=== PATIENT | female | born 1965 | race Two or more races ===

== ENCOUNTER 2019-12-21 07:57 | Emergency (ER) | payer BC ==
[~2019-12-21] VITALS: Ht 160 cm; Wt 61.2 kg
[2019-12-21 08:00] VITALS: BP 118/72
--- NOTE | 2019-12-21 08:09 | NUR ---
PT BIBA C/O LEFT SHOULDER PAIN S/P FALL ON STAIRS ONE HOUR AGO. NO ROM ON THE LEFT SHOULDER. PT STATES THE PAIN IS 10/10 AT THIS TIME. 50 MCG FENTANYL GIVEN ON SCENE. PT IS A&OX4. RADIAL PULSE +. CAP REFILLS ON LEFT FINGERS <2S. HR EVEN AND REGULAR; PT DENIES ANY FEVER, CP, SOB, OR COUGH AT THIS TIME; PATIENT STATES PAIN OF 0/10 AT THIS TIME; VSS; PATIENT POSITIONED FOR COMFORT; HOB ELEVATED; BEDRAILS UP X2; BED DOWN. ER MD MADE AWARE OF PT STATUS.
--- NOTE | 2019-12-21 08:09 | NUR ---
Note undone in EDM - 12/21/19 at 0819 by MED PT BIBA C/O LEFT SHOULDER PAIN S/P FALL ON STAIRS ONE HOUR AGO. NO ROM ON THE LEFT SHOULDER. PT STATES THE PAIN IS 10/10 AT THIS TIME. 5 MCG FENTANYL GIVEN ON SCENE. PT IS A&OX4. RADIAL PULSE +. CAP REFILLS ON LEFT FINGERS <2S. HR EVEN AND REGULAR; PT DENIES ANY FEVER, CP, SOB, OR COUGH AT THIS TIME; PATIENT STATES PAIN OF 0/10 AT THIS TIME; VSS; PATIENT POSITIONED FOR COMFORT; HOB ELEVATED; BEDRAILS UP X2; BED DOWN. ER MD MADE AWARE OF PT STATUS.
[2019-12-21] MEDS ORDERED: MORPHINE SULFATE 2 MG/ML SYR IVP ONE (08:20)
--- NOTE | 2019-12-21 08:37 | NUR ---
XRAY IS AT BEDSIDE.
--- NOTE | 2019-12-21 09:42 | NUR ---
APPLIED SUGAR TONG SPLINT TO LEFT UPPER ARM AND SLING WITHOUT ANY ISSUES
[2019-12-21 09:58] VITALS: BP 110/65
--- NOTE | 2019-12-21 09:58 | NUR ---
DPatient discharged with v/s stable. Written and verbal after care instructions given and explained. Patient alert, oriented and verbalized understanding of instructions. Ambulatory with steady gait. All questions addressed prior to discharge. ID band removed. Patient advised to follow up with PMD. Rx of Motrin, Narcan, and [place] given. Patient educated on indication of medication including possible reaction and side effects. Opportunity to ask questions provided and answered. Addendum: 12/21/19 at 0959 by MED[facility] IV ON RT AC, 20G REMOVED AND PLACED GAUZE TO IV INSERTION AREA TO STOP BLEED.
== END 2019-12-21 09:58 | disposition home or self-care (01) ==
LOC: MED 07:57
DX: S42.202A Unspecified fracture of upper end of left humerus, initial encounter for closed fracture (principal); W18.39XA Other fall on same level, initial encounter; Y93.89 Activity, other specified; Y92.89 Other specified places as the place of occurrence of the external cause; Y99.8 Other external cause status
CPT/HCPCS: 29105; 73030; 96374; 99283; J2270; Q0092